=== PATIENT | female | born 2000 | race Caucasian/White ===

== ENCOUNTER 2021-11-03 01:24 | Emergency (ER) | payer MEDICAID ==
[2021-11-03] MEDS ORDERED: Acetaminophen 325 MG Tab PO ONE (02:37)
== END 2021-11-03 06:08 | disposition home or self-care (01) ==
LOC: JD.ED 01:24
DX: O23.41 Unspecified infection of urinary tract in pregnancy, first trimester (principal); N39.0 Urinary tract infection, site not specified; Z88.0 Allergy status to penicillin; Z3A.01 Less than 8 weeks gestation of pregnancy
CPT/HCPCS: 36415; 76817; 80053; 81001; 83690; 84702; 85025; 99284; A9270